=== PATIENT | female | born 1990 | race Two or more races ===

== ENCOUNTER 2020-06-21 21:18 | Emergency (ER) | payer OTHER ==
[~2020-06-21] VITALS: Ht 170.2 cm; Wt 94.8 kg
--- NOTE | 2020-06-21 21:35 | NUR ---
SORE THROAT AND FEVERS X 2DAYS, LAST IBUPROFEN @7PM TODAY. PT AAOX4, VSS. RR EVEN & UNLABORED. DENIES CP, SOB, DIZZINESS, N/V AT THIS TIME. PT SEEN & EVAL'D BY HARMEET PROCTOR. WILL CONT TO MONITOR.
[2020-06-21] MEDS ORDERED: DEXAMETHASONE SOD PHOSPHATE 4 MG/ML VIAL ONE (21:42)
[2020-06-21] MEDS ORDERED: ACETAMINOPHEN ES 500 MG TABLET ONE (21:43)
--- NOTE | 2020-06-21 21:54 | NUR ---
MEDICATED ORDERED, PT NILSA WELL. WILL CONT TO MONITOR.
[2020-06-21] MEDS ORDERED: DEXAMETHASONE SOD PHOSPHATE 4 MG/ML VIAL IV ONE (22:00)
[2020-06-21] MEDS ORDERED: ACETAMINOPHEN ES 500 MG TABLET PO ONE (22:00)
[2020-06-21] MEDS ORDERED: IV NS 0.9% 1,000 ML BAG IV ONE (22:00)
[2020-06-21] MEDS ORDERED: ACET-2605 PO (22:04)
[2020-06-21] MEDS ORDERED: AMOX500T2 PO (22:04)
[2020-06-21 23:01] VITALS: BP 132/73
--- NOTE | 2020-06-21 23:01 | NUR ---
Patient discharged to home in stable condition. Written and verbal after care instructions given. Patient verbalizes understanding of instruction. IV removed. Catheter intact and site benign. Pressure and 4x4 applied to site. No bleeding noted.
== END 2020-06-21 23:01 | disposition home or self-care (01) ==
LOC: ER 21:32
DX: J02.0 Streptococcal pharyngitis (principal); Z20.822 Contact with and (suspected) exposure to COVID-19; Z86.16 Personal history of COVID-19; R00.0 Tachycardia, unspecified
CPT/HCPCS: 87880; 96361; 96374; 99283; C9803; J1100; J7030; U0003; 86403-TC

== ENCOUNTER 2023-06-11 20:56 | Emergency (ER) | payer OTHER ==
[~2023-06-11] VITALS: Ht 172.7 cm; Wt 113.4 kg
[~2023-06-11 20:56] MED LIST: ACET-2605 PO; AMOX500T2 PO
[2023-06-11 21:50] VITALS: BP 154/86; TEMP 98.5
[2023-06-11 23:50] VITALS: O2SAT 97
== END 2023-06-11 23:50 | disposition home or self-care (01) ==
LOC: ER 21:04
DX: J06.9 Acute upper respiratory infection, unspecified (principal); Z20.822 Contact with and (suspected) exposure to COVID-19
CPT/HCPCS: 71045-TC; 86403-TC; 87070-TC